=== PATIENT | female | born 1950 | race Caucasian/White ===

== ENCOUNTER 2017-02-21 21:52 | Emergency (ER) | payer MEDICARE, BC ==
[~2017-02-21] VITALS: Ht 165.1 cm; Wt 85.0 kg
[2017-02-21 22:01] VITALS: BP 156/86; PULSE 83; RESP 18; TEMP 98; O2SAT 98
[2017-02-21] MEDS ORDERED: LISI-519 PO (22:28)
--- NOTE | 2017-02-21 22:40 | PD ---
HPI Chief Complaint: Injury Time Seen by Provider: 22:35 Travel History International Travel<30 days: No Contact w/Intl Traveler<30days: No Traveled to known affect area: No History of Present Illness HPI 67-year-old female presents to the emergency room for evaluation of right knee pain after trip and fall just prior to arrival. Patient tripped on the ledge coming into her house and fell forward landing with all of her weight on her right knee. She denies hitting her loss consciousness. She denies any other injuries. States since that when she bears weight she has extreme pain in the right medial knee and it feels as though her knee is going to give out. She has little pain at rest. No previous knee history. She has not taken anything for pain. She denies lower extremity paresthesias. PFSH Past Medical History Hypertension: Yes Tetanus Vaccination: > 5 Years Influenza Vaccination: Yes ?: Not Menopausal: Yes Past Surgical History Hysterectomy: Yes Tonsillectomy: Yes Other Surgery: Yes (Toe, face) Social History Alcohol Use: Yes (Occ.) Tobacco Use: No Substance Use: No Allergies-Medications (Allergen,Severity, Reaction): Coded Allergies: Ceftin (Verified Allergy, Severe, Anaphylaxis, 02/21/17) Penicillin (Verified Allergy, Severe, Hives, 02/21/17) Sulfa (Verified Allergy, Severe, Rash, 02/21/17) Reported Meds & Prescriptions Reported Meds & Active Scripts Active Walker/Adult/Folding (Device) 1 Mis Mis 1 Ea .ROUTE DIRECTED Reported Lisinopril 5 Mg Tab 5 Mg PO DAILY Review of Systems Except as stated in HPI: all other systems reviewed are Neg Physical Exam Narrative GENERAL: Well-nourished, well-developed female in no acute distress. Afebrile. Ambulatory with a limp. SKIN: Focused skin assessment warm/dry. Superficial abrasion and mild ecchymosis to the right knee. HEAD: Normocephalic. EYES: No scleral icterus. No injection or drainage. NECK: Supple, trachea midline. No JVD or lymphadenopathy. CARDIOVASCULAR: Regular rate and rhythm without murmurs, gallops, or rubs. RESPIRATORY: Breath sounds equal bilaterally. No accessory muscle use. EXTREMITY: Right knee mildly tender to palpation. Full range of motion in all joints. No appreciable edema or effusion. 2+ dorsalis pedis pulse. Data Data Last Documented VS Vital Signs Date Time Temp Pulse Resp B/P Pulse Ox O2 Delivery O2 Flow Rate FiO2 02/21/17 22:01 98.0 83 18 156/86 98 Orders Knee, Complete (4vws) (02/21/17 ) ^ Knee Immobilizer (02/22/17 00:17) MDM Medical Decision Making Medical Screen Exam Complete: Yes Emergency Medical Condition: Yes Medical Record Reviewed: Yes Differential Diagnosis Fracture versus contusion versus abrasion Narrative Course 67-year-old female presents to the emergency room for evaluation of right knee pain after trip and fall just prior to arrival. She fell forward landing directly on her right knee. She denies any other injuries. She reports medial knee pain worse with range of motion and ambulation. Physical exam reveals mild abrasion and ecchymosis of the right anterior knee. It is mildly tender to palpation. Right lower extremity is neurovascularly intact with 2+ dorsalis pedis pulse. Strength 5/5 and equal in lower extremities. No appreciable edema or effusion. X-ray ordered and pending. Patient signed out to nighttime provider pending x-ray results. Scripts Walker/Adult/Folding 1 Mis Mis #1 EA .ROUTE DIRECTED Ref 0 Prov:Peter Jewell MD 02/22/17 Disposition: 01 DISCHARGE HOME Condition: Stable Rasheeda Borrero February 21, 2017 22:40
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
[2017-02-22] MEDS ORDERED: WALKER/ADULT/FO1 MIS (00:19)
--- NOTE | 2017-02-22 00:19 | PD ---
Data Data Last Documented VS Vital Signs Date Time Temp Pulse Resp B/P Pulse Ox O2 Delivery O2 Flow Rate FiO2 02/21/17 22:01 98.0 83 18 156/86 98 Orders Knee, Complete (4vws) (02/21/17 ) ^ Knee Immobilizer (02/22/17 00:17) MDM Supervised Visit with [facility]: Yes Narrative Course Patient care assumed from Rasheeda Borrero at 2300. Briefly this 67-year-old female who had a ground-level fall impacting her right knee in the anterior portion. She feels like her knee is sliding out of joint. On my physical exam the patient has no tenderness at her right ankle or right hip. She does have a minimal abrasion over her right patella. There is no laxity in valgus or varus testing no laxity and anterior posterior drawers, pulse motor and sensory intact distally in all 4 extremities, compartments are soft. Patient is able to ambulate albeit with a fair amount of tenderness. Discussed with the patient that her x-rays essentially negative at this time. She is visiting from [place] similar like to [facility] No indication further workup at this time. Recommended that she use a walker at home which she is supposed to be using for decreased ability to walk at baseline. She states the walker is up [place]. I have provided her prescription for a new walker. She is provided in the immobilizer. She is stable for discharge at this time and her son is going to take her home. Discussed symptomatic management and return to ED criteria. Diagnosis Primary Impression: Contusion, knee Qualified Code: S80.01XA - Contusion of right knee, initial encounter Med/Other Pt SpecificInfo: Prescription(s) given Scripts Walker/Adult/Folding 1 Mis Mis #1 EA .ROUTE DIRECTED Ref 0 Prov:Peter Jewell MD 02/22/17 Disposition: DISCHARGE HOME Condition: Stable Peter Jewell MD February 22, 2017 00:19
== END 2017-02-22 00:49 | disposition home or self-care (01) ==
LOC: PHEFT 21:52
DX: S80.01XA Contusion of right knee, initial encounter (principal); I10 Essential (primary) hypertension; Z88.0 Allergy status to penicillin; Z88.2 Allergy status to sulfonamides; W01.0XXA Fall on same level from slipping, tripping and stumbling without subsequent striking against object, initial encounter; Y92.009 Unspecified place in unspecified non-institutional (private) residence as the place of occurrence of the external cause
CPT/HCPCS: 73564; 99283